=== PATIENT | male | born 1975 | race Hispanic/Latino ===

== ENCOUNTER 2017-11-08 02:42 | Emergency (ER) | payer SELFPAY ==
[~2017-11-08] VITALS: Ht 182.9 cm; Wt 97.5 kg
--- NOTE | 2017-11-08 04:46 | Diagnostic Imaging Report ---
TEMPORARY, Technique: TEMPORARY Comparison: None Clinical history: Left lateral chest wall pain status post fall DISCUSSION: Heart/mediastinum: Stable, accentuated by low volumes. Lungs/pleural spaces: Low lung lungs with bibasilar vascular crowding/atelectasis. Bones: No acute bony abnormality. IMPRESSION: Low lung volumes with bibasilar vascular crowding/atelectasis. Signed by: Dr Rose Marie Raymundo MD on 11/08/2017 4:42 AM
[2017-11-09] MEDS ORDERED: TYLENOL WITH C1 EACH PO (10:46)
[2017-11-09] MEDS ORDERED: CYCLOBENZAPRINE5 MG PO (10:46)
== END 2017-11-08 04:18 | disposition left against medical advice (07) ==
LOC: ER 02:42
DX: R10.9 Unspecified abdominal pain (principal)
CPT/HCPCS: 71020

== ENCOUNTER → 2017-11-09 | Emergency (ER) | payer SELFPAY ==
[~2017-11-09] VITALS: Ht 182.9 cm; Wt 97.5 kg
[~2017-11-09] MED LIST: CYCLOBENZAPRINE5 MG PO; DEXTROSE 50% SYRINGE 50 ML IV ONE; KETOROLAC TROMETHAMINE 60 MG/2 ML VIAL IM ONE; KETOROLAC TROMETHAMINE 60 MG/2 ML VIAL ONE; TYLENOL WITH C1 EACH PO
== END | disposition home or self-care (01) ==
LOC: ER 10:10
DX: S20.212A Contusion of left front wall of thorax, initial encounter (principal); W01.0XXA Fall on same level from slipping, tripping and stumbling without subsequent striking against object, initial encounter; Y92.008 Other place in unspecified non-institutional (private) residence as the place of occurrence of the external cause
CPT/HCPCS: 99282; J1885

== ENCOUNTER 2018-07-07 08:48 | Emergency (ER) | payer SELFPAY ==
[~2018-07-07] VITALS: Ht 182.9 cm; Wt 92.1 kg
[~2018-07-07 08:48] MED LIST changes: -DEXTROSE 50% SYRINGE 50 ML IV ONE; -KETOROLAC TROMETHAMINE 60 MG/2 ML VIAL IM ONE; -KETOROLAC TROMETHAMINE 60 MG/2 ML VIAL ONE
[2018-07-07 09:16] LABS: BASOPHILS % 0.4 % (0.0-1.0); EOSINOPHILS # (AUTO) 0.2 (0.0-0.4); EOSINOPHILS % 2.2 % (0.0-6.0); HEMATOCRIT 49.8 % (38.2-49.6); HEMOGLOBIN 17.2 g/dL (14.0-18.0); LYMPHOCYTES # (AUTO) 1.5 (1.0-3.2); LYMPHOCYTES % 20.9 % (18.0-39.1); MEAN CORPUSCULAR HEMOGLOBIN 29.7 pg (28-32); MEAN CORPUSCULAR HGB CONC 34.5 g/dL (31-35); MEAN CORPUSCULAR VOLUME 85.9 fL (81-99); MONOCYTES # (AUTO) 0.7 (0.2-0.8); NEUTROPHILS # (AUTO) 4.8 (2.1-6.9); NEUTROPHILS % 66.1 % (38.7-80.0); PLATELET COUNT 245 x10e3/uL (140-360); RED CELL DISTRIBUTION WIDTH 12.7 % (11.7-14.4)
[2018-07-07 09:31] LABS: ALANINE AMINOTRANSFERASE 28 IU/L (0-55); ALBUMIN 4.4 g/dL (3.5-5.0); ALBUMIN/GLOBULIN RATIO 1.2 (0.8-2.0); ALKALINE PHOSPHATASE 67 IU/L (40-150); ANION GAP 14.8 mmol/L (8-16); BLOOD UREA NITROGEN 9 mg/dL (7-26); BUN/CREATININE RATIO 10 (6-25); CALCIUM 9.7 mg/dL (8.4-10.2); CARBON DIOXIDE 24 mmol/L (22-29); CHLORIDE 104 mmol/L (98-107); CREATINE KINASE 137 IU/L (30-200); CREATININE, SERUM 0.89 mg/dL (0.72-1.25); EST GLOMERULAR FILTRATION RATE > 60 ML/MIN (60-); GLUCOSE 93 mg/dL (74-118); POTASSIUM 3.8 mmol/L (3.5-5.1); SODIUM 139 mmol/L (136-145)
[2018-07-07 09:40] LABS: AMPHETAMINES SCREEN,URINE NEGATIVE (NEGATIVE); BENZODIAZEPINES SCREEN,URINE NEGATIVE (NEGATIVE); CLARITY,URINE CLEAR (CLEAR); COLOR,URINE YELLOW (YELLOW); LEUKOCYTE ESTERASE ,URINE NEGATIVE (NEGATIVE); NITRITE,URINE NEGATIVE (NEGATIVE); PHENCYCLIDINE SCREEN,URINE NEGATIVE (NEGATIVE); PROTEIN,URINE DIPSTICK NEGATIVE (NEGATIVE)
[2018-07-07 09:41] LABS: BILIRUBIN,URINE NEGATIVE (NEGATIVE); URINE UROBILINOGEN 0.2 mg/dL (0.2 - 1)
[2018-07-07 10:19] LABS: EPITHELIAL CELLS,URINE RARE /LPF
[2018-07-07 10:28] VITALS: BP 131/102
[2018-07-07 10:34] LABS: KETONES,URINE NEGATIVE (NEGATIVE)
== END 2018-07-07 10:39 | disposition home or self-care (01) ==
LOC: ER 08:48
DX: R00.2 Palpitations (principal); H93.13 Tinnitus, bilateral; F41.9 Anxiety disorder, unspecified; F32.9 Major depressive disorder, single episode, unspecified
CPT/HCPCS: 36415; 80053; 80307; 81001; 82550; 82553; 84484; 85025; 93005; 99284